=== PATIENT | male | born 1950 ===

== ENCOUNTER 2018-02-07 09:24 | Inpatient (IN) | payer OTHER ==
[~2018-02-07] VITALS: Ht 177.8 cm; Wt 77.1 kg
[2018-02-07] MEDS ORDERED: TRAVATAN Z5 ML OP (11:08)
[2018-02-09] MEDS ORDERED: MEDROLPACK PO (10:53)
== END 2018-02-10 13:56 | DRG 60 ==
LOC: ER 09:24 → SURG 14:30 → SEC-K 14:30 → SURG 14:51
PROC: B030ZZZ Magnetic Resonance Imaging (MRI) of Brain (ICD-10-PCS; principal; 2018-02-07)
PROC: BW28ZZZ Computerized Tomography (CT Scan) of Head (ICD-10-PCS; 2018-02-07)
PROC: B246ZZZ Ultrasonography of Right and Left Heart (ICD-10-PCS; 2018-02-07)
DX: G35 Multiple sclerosis (principal); N40.0 Benign prostatic hyperplasia without lower urinary tract symptoms; R33.8 Other retention of urine
CPT/HCPCS: 70545

== ENCOUNTER 2020-03-03 10:55 | Outpatient (CLI) | payer OTHER ==
[~2020-03-03 10:55] MED LIST: MEDROLPACK PO; TRAVATAN Z5 ML OP
== END 2020-03-03 10:57 | disposition home or self-care (01) ==
LOC: PPH VACUNA 10:55
PROVIDERS: ATTEND Emergency Medicine Pediatric Emergency Medicine
DX: Z23 Encounter for immunization (principal)

== ENCOUNTER → 2020-10-20 | Outpatient (CLI) | payer OTHER | END | disposition home or self-care (01) | LOC: PPH VACUNA 15:00 | DX: Z23 Encounter for immunization (principal) ==